=== PATIENT | male | born 1995 | race Caucasian/White ===

== ENCOUNTER 2017-08-24 16:07 | Emergency (ER) | payer OTHER ==
[~2017-08-24] VITALS: Ht 175.3 cm; Wt 74.8 kg
[2017-08-24 16:14] VITALS: TEMP 36.9; Ht 175.3 cm; Wt 74.8 kg
--- NOTE | 2017-08-24 16:43 | EMERGENCY ROOM VISIT NOTE ---
History Report prepared by Soco: Jenae Romero Under the Supervision of: Dr. Shawn Henderson M.D. First contact with patient: 16:27 Chief Complaint: RASH Stated Complaint: PURPURA AFTER RECENT ILLNESS History of Present Illness The patient is a 21 year old white male with a past medical history of ITP who presents to the ED with a cc of rash beginning this morning. The patient noticed some purpura on his bilateral wrists. He denies any itching. He is worried that his platelet counts are low because he has been sick recently. He notes some recent cold symptoms over the past 3 days that seem to be improving. He last had blood work done about 1 year ago. Negative nausea, vomiting. Pt denies recent changes in creams and detergents. Pt denies any recent bites. Source of History: patient Onset: this morning Position: wrist (bilateral) Quality: other (purpura) Timing: constant Associated Symptoms: No nausea, No vomiting Review of Systems See HPI for pertinent positives and negatives. A total of ten systems were reviewed and were otherwise negative. Past Medical & Surgical Medical Problems: (1) Idiopathic thrombocytopenia purpura Family History Diabetes mellitus Heart disease Hypertension Social History Smoking Status: Never Smoker Smokeless Tobacco Use: No Alcohol Use: occasionally Occupation Status: [employer] student Current/Historical Medications Scheduled Dexamethasone (Decadron), 40 MG PO QD Pantoprazole (Protonix), 40 MG PO DAILY Allergies Coded Allergies: No Known Allergies (Unverified , 08/24/17) Physical Exam Vital Signs Date Time Temp Pulse Resp B/P (MAP) Pulse Ox O2 Delivery O2 Flow Rate FiO2 08/24/17 20:00 82 20 130/72 98 08/24/17 18:46 85 18 114/79 98 Room Air 08/24/17 17:03 83 08/24/17 16:14 36.9 98 18 128/74 98 Room Air Physical Exam GENERAL: Awake, alert, well-appearing, NAD HENT: Normocephalic, atraumatic. No gingival bleeding. EYES: Normal conjunctiva. Sclera non-icteric. NECK: Supple. No nuchal rigidity. FROM. RESPIRATORY: CTAB, no rhonchi, wheezing, crackles CARDIAC: RRR, no MRG ABDOMEN: Soft, NTND, BS+ MSK: No chest wall TTP, no LE edema NEURO: GCS 15, CN 2-12 intact, moves all 4s on command SKIN: Pinpoint, nonblanching macules over the volar aspect of the bilateral wrists, nothing seen over the legs, chest, back, or abdomen. Medical Decision & Procedures Laboratory Results 08/24/17 16:50 Red Blood Count 4.87, Mean Corpuscular Volume 84.6, Mean Corpuscular Hemoglobin 29.8, Mean Corpuscular Hemoglobin Concent 35.2, Neutrophils (%) (Auto) 58.6, Lymphocytes (%) (Auto) 23.6, Monocytes (%) (Auto) 14.8, Eosinophils (%) (Auto) 2.6, Basophils (%) (Auto) 0.2, Neutrophils # (Auto) 3.45, Lymphocytes # (Auto) 1.39, Monocytes # (Auto) 0.87, Eosinophils # (Auto) 0.15, Basophils # (Auto) 0.01 08/24/17 16:50 Test 08/24/17 16:50 White Blood Count 5.88 K/uL (4.8-10.8) Red Blood Count 4.87 M/uL (4.7-6.1) Hemoglobin 14.5 g/dL (14.0-18.0) Hematocrit 41.2 % (42-52) Mean Corpuscular Volume 84.6 fL (80-100) Mean Corpuscular Hemoglobin 29.8 pg (25-34) Mean Corpuscular Hemoglobin Concent 35.2 g/dl (32-36) Platelet Count 18 K/uL (130-400) Neutrophils (%) (Auto) 58.6 % Lymphocytes (%) (Auto) 23.6 % Monocytes (%) (Auto) 14.8 % Eosinophils (%) (Auto) 2.6 % Basophils (%) (Auto) 0.2 % Neutrophils # (Auto) 3.45 K/uL (1.4-6.5) Lymphocytes # (Auto) 1.39 K/uL (1.2-3.4) Monocytes # (Auto) 0.87 K/uL (0.11-0.59) Eosinophils # (Auto) 0.15 K/uL (0-0.5) Basophils # (Auto) 0.01 K/uL (0-0.2) RDW Standard Deviation 39.0 fL (36.4-46.3) RDW Coefficient of Variation 12.7 % (11.5-14.5) Immature Granulocyte % (Auto) 0.2 % Immature Granulocyte # (Auto) 0.01 K/uL (0.00-0.02) Platelet Estimate SIGNIFIC DECREASED Prothrombin Time 10.6 SECONDS (9.0-12.0) Prothromb Time International Ratio 1.0 (0.9-1.1) Activated Partial Thromboplast Time 31.7 SECONDS (21.0-31.0) Partial Thromboplastin Ratio 1.2 Anion Gap 6.0 mmol/L (3-11) Est Creatinine Clear Calc Drug Dose 99.1 ml/min Estimated GFR () 101.6 Estimated GFR (Non- 87.7 BUN/Creatinine Ratio 14.5 (10-20) Calcium Level 9.2 mg/dl (8.5-10.1) Total Bilirubin 0.8 mg/dl (0.2-1) Direct Bilirubin 0.2 mg/dl (0-0.2) Aspartate Amino Transf (AST/SGOT) 28 U/L (15-37) Alanine Aminotransferase (ALT/SGPT) 42 U/L (12-78) Alkaline Phosphatase 65 U/L (45-117) Total Protein 8.3 gm/dl (6.4-8.2) Albumin 4.4 gm/dl (3.4-5.0) Laboratory results reviewed by me. Medications Administered Medications (Trade) Dose Ordered Sig/Mer Route Start Time Stop Time Status Last Admin Dose Admin Dexamethasone (Decadron Tab) 40 mg NOW ONCE PO 08/24/17 19:00 08/24/17 19:01 DC 08/24/17 19:39 40 MG Pantoprazole Sodium (Protonix Tab) 40 mg NOW STAT PO 08/24/17 18:55 08/24/17 18:56 DC 08/24/17 19:41 40 MG ED Course 1631: The patient was evaluated in room A2. A complete history and physical exam was performed. 1: I spoke with Dr. Burris of hematology. We discussed the patient's case. Dr. Burris recommended a high dose of dexamethasone and repeat blood work in two days with follow-up. 7: I reassessed the patient at this time. He is feeling better and resting comfortably. I discussed the results and treatment plan with the patient. I answered all pertaining questions that he had. He expressed understanding and verbalized agreement. The patient will be discharged home. Medical Decision Differential diagnosis: Etiologies such as contact dermatitis, viral exanthem, urticaria, allergic reaction, Nava-Vincenzo syndrome, toxic epidermal necrolysis, erythema multiforme, cellulitis, scabies, HSV, varicella, zoster, eczema, staph scalded skin syndrome, fungal infection, as well as others were entertained. The patient is a 21 year old white male with a past medical history of ITP who presents to the ED with a cc of rash beginning this morning. Patient was seen and evaluated the bedside. Patient does have a known history of ITP. Patientwas initially described as some purpura to the bilateral lower aspect of his forearms. Upon inspection the patient has has some very trace petechiae. Patient has no spontaneous areas of bleeding. No evidence of purpura seen. Patient did have blood work completed. Patient did have a white count of 19,000. I did discuss this with the on-call configuration analyst. He recommended 40 mg of by mouth dexamethasone. He was also told that he needs a repeat CBC in 2 days. I did talk with case management help arrange his hematology as well as his blood draw follow-up. He was given a prescription for this as well. Patient was also told to be very cautious with his activities as he would have a hard chance of bleeding given his low platelet count. Patient understood. All cautions were answered. Patient was deemed suitable for outpatient follow-up treatment at this time. Patient was given strict follow-up, discharge, and return precautions. All questions were answered. Patient was deemed suitable for outpatient follow-up at this time. Patient agreed with the plan of care and was safely discharged home. The chart was completed utilizing [employer] voice recognition software. Grammatical errors, random word insertions, pronoun errors, and incomplete sentences are an occasional consequence of this system due to software limitations, ambient noise, and hardware issues. Any formal questions or concerns about the content, text, or information contained within the body of this dictation should be directly addressed to the physician for clarification. Medication Reconcilliation Current Medication List: was personally reviewed by me Blood Pressure Screening Patient's blood pressure: Normal blood pressure Consults Time Called: [phone] Consulting Physician: Dr. Burris Returned Call: [address] Burris of hematology. We discussed the patient's case. Dr. Burris recommended a high dose of dexamethasone and repeat blood work in two days with follow-up. Impression Primary Impression: Idiopathic thrombocytopenia purpura Additional Impression: Thrombocytopenia Scribe Attestation The scribe's documentation has been prepared under my direction and personally reviewed by me in its entirety. I confirm that the note above accurately reflects all work, treatment, procedures, and medical decision making performed by me. Departure Information Dispostion Home / Self-Care Prescriptions Pantoprazole (Protonix) 40 Mg Tab 40 MG PO DAILY for 4 Days, #4 TAB Prov: Shawn Henderson M.D. 08/24/17 Dexamethasone (DECADRON) 4 Mg Tab 40 MG PO QD for 4 Days, #40 TAB Prov: Shawn Henderson M.D. 08/24/17 Referrals No Doctor, Assigned (PCP) Forms HOME CARE DOCUMENTATION FORM, IMPORTANT VISIT INFORMATION, WORK / SCHOOL INSTRUCTIONS Patient Instructions Immune Thrombocytopenia Purpura Dc, My [facility], Thrombocytopenia Additional Instructions Please return to the emergency department if you have worsening or recurrent symptoms not amenable to at-home treatment. Please call for a follow-up appointment with her primary care physician. Please take your medications as prescribed. If you have other concerns and/or complaints please feel free to also call your primary care physician's office or return the ED for further evaluation, management, and treatment. Please keep your scheduled follow-up appointment with the configuration analyst. These return if you have fever have any worsening or spontaneous bleeding or bruising. Please follow-up for your repeat blood draw in 2 days. Least take the steroids as directed. He should take them with food and preferably in the morning. Also take the proton pump inhibitor to help with any GI upset. You may take tylenol 1000 mg every 6 hours as needed for pain. Take your medications as prescribed. . You have been examined and treated today on an emergency basis only. This is not a substitute for, or an effort to provide, complete comprehensive medical care. It is impossible to recognize and treat all injuries or illnesses in a single emergency department visit. It is therefore important that you follow up closely with [facility], your PCP, and/or your specialist(s). Call as soon as possible for an appointment. Thank you for your time and consideration. I look forward to speaking with you again soon. Please don't hesitate to call us if you have any questions. Problem Qualifiers
[2017-08-24 18:38] LABS: PLATELET COUNT 18 K/uL (130-400)
[2017-08-24 18:42] LABS: PTT PATIENT 31.7 SECONDS (21.0-31.0)
[2017-08-24 18:50] LABS: BASO % 0.2 %; BASO ABS # 0.01 K/uL (0-0.2); EOS % 2.6 %; EOS ABS # 0.15 K/uL (0-0.5); HEMATOCRIT 41.2 % (42-52); HEMOGLOBIN 14.5 g/dL (14.0-18.0); IG# 0.01 K/uL (0.00-0.02); LYMPH % 23.6 %; LYMPH ABS # 1.39 K/uL (1.2-3.4); MEAN CELL VOLUME 84.6 fL (80-100); MEAN CORPUSCULAR HEMOGLOBIN 29.8 pg (25-34); MEAN CORPUSCULAR HGB CONC 35.2 g/dl (32-36); MONO % 14.8 %; MONO ABS # 0.87 K/uL (0.11-0.59); NEUT % 58.6 %; NEUT ABS # 3.45 K/uL (1.4-6.5); RED CELL DISTRIBUTION WIDTH CV 12.7 % (11.5-14.5); WHITE BLOOD COUNT 5.88 K/uL (4.8-10.8)
[2017-08-24 18:52] LABS: ALBUMIN 4.4 gm/dl (3.4-5.0); CALCIUM 9.2 mg/dl (8.5-10.1); CREATININE 1.18 mg/dl (0.60-1.40); POTASSIUM 3.7 mmol/L (3.5-5.1)
[2017-08-24 18:54] LABS: TOTAL PROTEIN 8.3 gm/dl (6.4-8.2)
[2017-08-24] MEDS ORDERED: PANTOprazole SOD 40 MG TAB PO STA (18:55)
[2017-08-24] MEDS ORDERED: DEXAMETHASONE 4 MG TAB PO ONE (19:00)
[2017-08-24] MEDS ORDERED: PANT40TA PO (19:45)
[2017-08-24] MEDS ORDERED: DXM/4 PO (19:45)
[2017-08-24 20:00] VITALS: BP 130/72; PULSE 82; O2SAT 98
== END 2017-08-24 20:01 | disposition home or self-care (01) ==
LOC: C.EDB 16:09 → C.EDA 20:01
DX: D69.3 Immune thrombocytopenic purpura (principal); Z83.3 Family history of diabetes mellitus; Z82.49 Family history of ischemic heart disease and other diseases of the circulatory system; Z79.899 Other long term (current) drug therapy

== ENCOUNTER → 2017-08-26 | Outpatient (CLI) | payer OTHER ==
[~2017-08-26] MED LIST: AMOX875T PO; DXM/4 PO; PANT40TA PO
[2017-08-26 16:55] LABS: HEMOGLOBIN 13.3 g/dL (14.0-18.0); MEAN CELL VOLUME 85.2 fL (80-100); MEAN CORPUSCULAR HGB CONC 34.1 g/dl (32-36); MEAN PLATELET VOLUME 13.4 fL (7.4-10.4); PLATELET COUNT 98 K/uL (130-400); RED CELL DISTRIBUTION WIDTH CV 12.8 % (11.5-14.5); RED CELL DISTRIBUTION WIDTH SD 39.3 fL (36.4-46.3); WHITE BLOOD COUNT 10.89 K/uL (4.8-10.8)
--- NOTE | 2017-09-08 15:45 | EDITING REQUIRED CODING QUERY ---
: 1995 TREATMENT RENDERED WITHOUT A DIAGNOSIS To promote full compliance with coding requirements relating to patient care, physician participation is requested in all cases of tourist home keeper uncertainty. Please assist us with providing a diagnosis/symptom for the test(s) below: A diagnosis/symptom was not documented on your Order. A valid diagnosis/symptom is required to bill all insurances. Please remember that we are unable to code a diagnosis of rule out, probable, possible, questionable, or suspected. Tests that require a diagnosis: DOS: 08/26/17 * CBC DIAGNOSIS: Provider Signature: Date: Thank you [facility] Information Management Once completed, please kindly fax back to [phone] For questions please call [phone]
== END | disposition home or self-care (01) ==
LOC: C.LAB 15:51
PROVIDERS: ATTEND Emergency Medicine
DX: Z01.89 Encounter for other specified special examinations (principal)

== ENCOUNTER 2017-08-29 08:12 | Emergency (ER) | payer OTHER ==
[~2017-08-29] VITALS: Ht 175.3 cm; Wt 75.7 kg
[~2017-08-29 08:12] MED LIST changes: -AMOX875T PO
[2017-08-29 08:17] VITALS: TEMP 36.7; Ht 175.3 cm; Wt 75.7 kg
[2017-08-29 09:59] LABS: BASO % 0.1 %; BASO ABS # 0.01 K/uL (0-0.2); HEMATOCRIT 42.6 % (42-52); HEMOGLOBIN 14.6 g/dL (14.0-18.0); IG# 0.11 K/uL (0.00-0.02); LYMPH % 11.9 %; LYMPH ABS # 1.58 K/uL (1.2-3.4); MEAN CELL VOLUME 86.2 fL (80-100); MEAN CORPUSCULAR HEMOGLOBIN 29.6 pg (25-34); MEAN CORPUSCULAR HGB CONC 34.3 g/dl (32-36); MEAN PLATELET VOLUME 12.4 fL (7.4-10.4); MONO % 11.4 %; MONO ABS # 1.51 K/uL (0.11-0.59); NEUT % 75.8 %; NEUT ABS # 10.09 K/uL (1.4-6.5); PLATELET COUNT 168 K/uL (130-400); RED CELL DISTRIBUTION WIDTH CV 12.7 % (11.5-14.5); RED CELL DISTRIBUTION WIDTH SD 40.3 fL (36.4-46.3)
[2017-08-29 10:03] VITALS: O2SAT 98
[2017-08-29 10:15] LABS: ALBUMIN 3.6 gm/dl (3.4-5.0); CALCIUM 8.7 mg/dl (8.5-10.1); CREATININE 1.11 mg/dl (0.60-1.40); POTASSIUM 3.7 mmol/L (3.5-5.1)
[2017-08-29 10:18] LABS: TOTAL PROTEIN 7.1 gm/dl (6.4-8.2)
--- NOTE | 2017-08-29 10:44 | DIAGNOSTIC IMAGING REPORT ---
FACIAL/NECK ULTRASOUND CLINICAL HISTORY: R posterior jaw swelling. On dexamethasone for ITP. COMPARISON STUDY: None. TECHNIQUE: Sonography of the lower face and upper neck was performed at site of swelling was performed. FINDINGS: Note is made of a right level 2 lymph node that measures 2.6 x 1.2 x 1.3 cm. This lymph node is mildly enlarged. A few subcentimeter hypoechoic right parotid lesions may reflect intraparotid lymph nodes. No abscess is identified by sonography. There is slight heterogeneity of the right parotid gland compared to left. IMPRESSION: 1. No fluid collection to suggest abscess. 2. Mildly enlarged right level 2 lymph node which is likely reactive. 3. Slight heterogeneity of the right parotid gland when compared to left. This is probably within normal limits although mild parotitis could have this appearance. Electronically signed by: Rupert Kebede M.D. 08/29/2017 10:43 AM Dictated Date/Time: 08/29/2017 10:40 AM
[2017-08-29] MEDS ORDERED: ACETAMINOPHEN 500 MG TAB PO STA (11:20)
[2017-08-29] MEDS ORDERED: AMOX875T PO (11:22)
--- NOTE | 2017-08-29 11:23 | EMERGENCY ROOM VISIT NOTE ---
History First contact with patient: 08:48 Chief Complaint: HEADACHE Stated Complaint: SWOLLEN JAW, AGUIRRE, HEARING ISSUES History of Present Illness The patient is a 21 year old male who presents to the Emergency Room with complaints of "swollen jaw, headache, hearing issues". The patient was instructed us today noting that he has a history of ITP, and has been receiving Decadron recently. His last dose was yesterday. He states that the right jaw posteriorly was swollen in the neck, and upon wakening this morning it was much or pronounced. He also notes right ear pain, and pain in the right posterior jaw. He rates the pain as a 6/10. He denies, trouble breathing, shortness of breath, sore throat, chest pain, blurred vision, among others. There has been no recent contacts with mumps, and he is up-to-date on vaccinations. There is no testicular pain. Review of Systems A complete 10-point Review of Systems was discussed with the patient, with pertinent positives and negatives listed in the History of Present Illness. All remaining Review of Systems questions can be considered negative unless otherwise specified. Past Medical/Surgical History Medical Problems: (1) Idiopathic thrombocytopenia purpura Family History Diabetes mellitus Heart disease Hypertension Social History Smoking Status: Never Smoker Alcohol Use: occasionally Occupation Status: [employer] student Current/Historical Medications Scheduled Amoxicillin & Pot Clavulanate (Augmentin 875-125 mg), 1 TAB PO BID Physical Exam Vital Signs Date Time Temp Pulse Resp B/P (MAP) Pulse Ox O2 Delivery O2 Flow Rate FiO2 08/29/17 11:41 50 16 113/91 99 08/29/17 10:05 50 16 119/77 98 Room Air 08/29/17 10:03 98 Room Air 08/29/17 08:17 36.7 58 20 128/79 98 Room Air Physical Exam VITAL SIGNS - Vital signs and nursing notes were reviewed. Stable. GENERAL - 21-year-old male appearing his stated age who is in no acute distress. Communicates well with provider and answers questions appropriately. SKIN - Without rashes. HEAD - NC/AT. EYES - PERRL with EOMI bilaterally. Sclera anicteric. Palpebral conjunctiva pink and moist with no injection noted. EARS - No deformities of external structures noted on gross examination bilaterally. No pain elicited with palpation of the tragus bilaterally. External auditory canals without discharge or otorrhea. Tympanic membranes pearly david without retraction or bulging. No fluid or purulent material visualized behind the TM. Handle of malleus, umbo, cone of light, pars tensa/ flaccid all easily visualized. NOSE - Midline and without cyanosis. No epistaxis or purulent drainage noted. Septum midline without deviation or septal hematoma noted. MOUTH/OROPHARYNX - Without perioral cyanosis. Buccal mucosa pink and moist and without leukoplakia. Tongue midline with equal elevation of palate bilaterally. No tonsillar hypertrophy, erythema, or exudates noted. Fair dentition noted. NECK - Neck with FROM. Supple to palpation. R anterior cervical lymphadenopathy noted. No nuchal rigidity. R posterior angle of mandible swelling. LUNGS - Chest wall symmetric without accessory muscle use, intercostals retractions, or central cyanosis. Normal vesicular breath sounds CTA B/L. No wheezes, rales, or rhonchi appreciated. CARDIAC - RRR with S1/S2. No murmur, rubs, or gallops appreciated. Medical Decision & Procedures ER Provider Diagnostic Interpretation: FACIAL/NECK ULTRASOUND CLINICAL HISTORY: R posterior jaw swelling. On dexamethasone for ITP. COMPARISON STUDY: None. TECHNIQUE: Sonography of the lower face and upper neck was performed at site of swelling was performed. FINDINGS: Note is made of a right level 2 lymph node that measures 2.6 x 1.2 x 1.3 cm. This lymph node is mildly enlarged. A few subcentimeter hypoechoic right parotid lesions may reflect intraparotid lymph nodes. No abscess is identified by sonography. There is slight heterogeneity of the right parotid gland compared to left. IMPRESSION: 1. No fluid collection to suggest abscess. 2. Mildly enlarged right level 2 lymph node which is likely reactive. 3. Slight heterogeneity of the right parotid gland when compared to left. This is probably within normal limits although mild parotitis could have this appearance. Electronically signed by: Rupert Kebede M.D. 08/29/2017 10:43 AM Dictated Date/Time: 08/29/2017 10:40 AM Laboratory Results 08/29/17 09:30 Red Blood Count 4.94, Mean Corpuscular Volume 86.2, Mean Corpuscular Hemoglobin 29.6, Mean Corpuscular Hemoglobin Concent 34.3, Mean Platelet Volume 12.4, Neutrophils (%) (Auto) 75.8, Lymphocytes (%) (Auto) 11.9, Monocytes (%) (Auto) 11.4, Eosinophils (%) (Auto) 0.0, Basophils (%) (Auto) 0.1, Neutrophils # (Auto ) 10.09, Lymphocytes # (Auto) 1.58, Monocytes # (Auto) 1.51, Eosinophils # (Auto ) 0.00, Basophils # (Auto) 0.01 08/29/17 09:30 Test 08/29/17 09:30 White Blood Count 13.30 K/uL (4.8-10.8) Red Blood Count 4.94 M/uL (4.7-6.1) Hemoglobin 14.6 g/dL (14.0-18.0) Hematocrit 42.6 % (42-52) Mean Corpuscular Volume 86.2 fL (80-100) Mean Corpuscular Hemoglobin 29.6 pg (25-34) Mean Corpuscular Hemoglobin Concent 34.3 g/dl (32-36) Platelet Count 168 K/uL (130-400) Mean Platelet Volume 12.4 fL (7.4-10.4) Neutrophils (%) (Auto) 75.8 % Lymphocytes (%) (Auto) 11.9 % Monocytes (%) (Auto) 11.4 % Eosinophils (%) (Auto) 0.0 % Basophils (%) (Auto) 0.1 % Neutrophils # (Auto) 10.09 K/uL (1.4-6.5) Lymphocytes # (Auto) 1.58 K/uL (1.2-3.4) Monocytes # (Auto) 1.51 K/uL (0.11-0.59) Eosinophils # (Auto) 0.00 K/uL (0-0.5) Basophils # (Auto) 0.01 K/uL (0-0.2) RDW Standard Deviation 40.3 fL (36.4-46.3) RDW Coefficient of Variation 12.7 % (11.5-14.5) Immature Granulocyte % (Auto) 0.8 % Immature Granulocyte # (Auto) 0.11 K/uL (0.00-0.02) Anion Gap 6.0 mmol/L (3-11) Est Creatinine Clear Calc Drug Dose 105.3 ml/min Estimated GFR () 109.4 Estimated GFR (Non- 94.4 BUN/Creatinine Ratio 19.6 (10-20) Calcium Level 8.7 mg/dl (8.5-10.1) Total Bilirubin 0.3 mg/dl (0.2-1) Aspartate Amino Transf (AST/SGOT) 21 U/L (15-37) Alanine Aminotransferase (ALT/SGPT) 99 U/L (12-78) Alkaline Phosphatase 58 U/L (45-117) Total Protein 7.1 gm/dl (6.4-8.2) Albumin 3.6 gm/dl (3.4-5.0) Globulin 3.5 gm/dl (2.5-4.0) Albumin/Globulin Ratio 1.0 (0.9-2) Medications Administered Medications (Trade) Dose Ordered Sig/Mer Route Start Time Stop Time Status Last Admin Dose Admin Acetaminophen (Tylenol Tab) 500 mg NOW STAT PO 08/29/17 11:20 08/29/17 11:21 DC 08/29/17 11:30 500 MG Medical Decision Patient was seen and evaluated as above. He presents to us today with right posterior jaw swelling in the neck. It is concerning for that of parotitis or a large left noted. Ultrasound was obtained and found enlarged lymph node questionable mild parotitis. CBC reveals leukocytosis of 13.30 which I believe is secondary to the dexamethasone. No anemia. Platelet count significantly improved. Metabolic panel reveals evidence of BUN elevated to 22, and creatinine 1.11. Patient was informed upon this finding. ALT high at 99. I do recommend repeat labs because of the patient's kidney function today. He is to follow with [facility]. The case was discussed with the attending physician, and the decision was made to start the patient on Augmentin , with close follow-up with [facility] or return here if worsening. The decision to test for mumps was to forego this, as he clinically does not present as such. He appears stable for outpatient management and was in depth counseled on management. He was educated upon management, educated upon worrisome symptoms in which to return, had questions and provided discharge , and was discharged home in good condition. It is possible this enlargement could be from the steroid, and there is no ring enhancing lesion or evidence of an abscess. In evaluation and treatment of this patient the following differential diagnoses were entertained: Parotitis, mumps, lymph node enlargement, among others. Impression Primary Impression: Localized swelling, mass and lump, neck Departure Information Dispostion Home / Self-Care Condition GOOD Prescriptions Amoxicillin & Pot Clavulanate (Augmentin 875-125 mg) 1 Tab Tab 1 TAB PO BID for 7 Days, #14 TAB Prov: Emory Mitcehll PA-C 08/29/17 Referrals No Doctor, Assigned (PCP) Patient Instructions My [facility] Additional Instructions You have been treated in the Emergency Department for a Headache. You have a lymph node and small enlarged parotid gland. Augmentin 1 tab every 12 hours for 7 days For pain control, you can use the following othr-huc-jezarzp medicines: - Regular strength (325mg/tab) Tylenol (acetaminophen) 2 tabs every 4-6 hours as needed. Do not exceed 12 tablets in a 24 hour period. Avoid taking more than 3 grams (3000 mg) of Tylenol per day. This includes any other sources of acetaminophen you may take on a regular basis. - Regular strength (200 mg/tab) Advil (ibuprofen) 1-2 tabs every 4-6 hours as needed. Do not exceed a dose of 3200 mg per day. You should relax in a quiet, dark place for the rest of the day. Avoid any possible triggers including: cigarette smoke, caffeine, nicotine, chocolate, wine, beer, loud noises or music, or bright lights. You should schedule a follow-up appointment in 2-3 days with your Primary Care Provider ([facility]) Return to the Emergency Department if your current symptoms worsen despite treatment course outlined above, or if you develop any of the following symptoms : intractable pain despite aforementioned treatment course, visual disturbances , loss of vision, fever, worsening swelling, or any new/concerning symptoms
[2017-08-29 11:41] VITALS: BP 113/91; PULSE 50; O2SAT 99
== END 2017-08-29 11:44 | disposition home or self-care (01) ==
LOC: C.EDB 08:13
DX: R22.1 Localized swelling, mass and lump, neck (principal); Z83.3 Family history of diabetes mellitus; Z82.49 Family history of ischemic heart disease and other diseases of the circulatory system

== ENCOUNTER → 2017-09-19 | Outpatient (CLI) | payer OTHER ==
[2017-09-19 10:43] LABS: BASO % 0.6 %; BASO ABS # 0.02 K/uL (0-0.2); EOS % 4.7 %; EOS ABS # 0.17 K/uL (0-0.5); HEMATOCRIT 40.7 % (42-52); HEMOGLOBIN 14.1 g/dL (14.0-18.0); LYMPH % 40.8 %; LYMPH ABS # 1.47 K/uL (1.2-3.4); MEAN CELL VOLUME 85.1 fL (80-100); MEAN CORPUSCULAR HEMOGLOBIN 29.5 pg (25-34); MEAN CORPUSCULAR HGB CONC 34.6 g/dl (32-36); MEAN PLATELET VOLUME 12.6 fL (7.4-10.4); MONO % 10.3 %; MONO ABS # 0.37 K/uL (0.11-0.59); NEUT % 43.6 %; NEUT ABS # 1.57 K/uL (1.4-6.5); PLATELET COUNT 115 K/uL (130-400); RED CELL DISTRIBUTION WIDTH CV 13.3 % (11.5-14.5); RED CELL DISTRIBUTION WIDTH SD 41.2 fL (36.4-46.3)
== END | disposition home or self-care (01) ==
LOC: C.LAB 09:50
PROVIDERS: ATTEND Internal Medicine Hematology & Oncology
DX: D69.3 Immune thrombocytopenic purpura (principal)

== ENCOUNTER → 2017-11-14 | Outpatient (CLI) | payer OTHER ==
[2017-11-14 12:20] LABS: BASO % 0.4 %; BASO ABS # 0.02 K/uL (0-0.2); EOS % 3.1 %; EOS ABS # 0.16 K/uL (0-0.5); HEMATOCRIT 42.9 % (42-52); HEMOGLOBIN 14.9 g/dL (14.0-18.0); LYMPH % 27.9 %; LYMPH ABS # 1.45 K/uL (1.2-3.4); MEAN CELL VOLUME 85.6 fL (80-100); MEAN CORPUSCULAR HEMOGLOBIN 29.7 pg (25-34); MEAN CORPUSCULAR HGB CONC 34.7 g/dl (32-36); MONO % 9.1 %; MONO ABS # 0.47 K/uL (0.11-0.59); NEUT % 59.5 %; NEUT ABS # 3.09 K/uL (1.4-6.5); PLATELET COUNT 160 K/uL (130-400); RED CELL DISTRIBUTION WIDTH CV 13.4 % (11.5-14.5); RED CELL DISTRIBUTION WIDTH SD 41.8 fL (36.4-46.3); WHITE BLOOD COUNT 5.19 K/uL (4.8-10.8)
== END | disposition home or self-care (01) ==
LOC: C.LAB 10:02
PROVIDERS: ATTEND Internal Medicine Hematology & Oncology
DX: D69.3 Immune thrombocytopenic purpura (principal)